=== PATIENT | male | born 1965 | race Two or more races ===

== ENCOUNTER 2020-08-21 12:58 | Inpatient (IN) | payer OTHER ==
--- OUTSIDE RECORDS SUMMARY | 2020-09-06 05:45 | XMS ---
:1965 Author Organization [facility] Care Team Providers Name Role Phone Caesar Whalen Unavailable Unavailable Re-disclosure Warning The records that you are about to access may contain information from federally- assisted alcohol or drug abuse programs. If such information is present, then the following federally mandated warning applies: This information has been disclosed to you from records protected by federal confidentiality rules (42 CFR part 2). The federal rules prohibit you from making any further disclosure of this information unless further disclosure is expressly permitted by the written consent of the person to whom it pertains or as otherwise permitted by 42 CFR part 2. A general authorization for the release of medical or other information is NOT sufficient for this purpose. The Federal rules restrict any use of the information to criminally investigate or prosecute any alcohol or drug abuse patient.The records that you are about to access may contain highly sensitive health information, the redisclosure of which is protected by Article 27-F of the [facility] Public Health law. If you continue you may haveaccess to information: Regarding HIV / AIDS; Provided by facilities licensed or operated by the [facility] Office of Mental Health; or Provided by the [facility] Office for People With Developmental Disabilities. If such information is present, then the following [facility] mandated warning applies: This information has been disclosed to you from confidential records which are protected by state law. State law prohibits you from making any further disclosure of this information without the specific written consent of the person to whom it pertains, or as otherwise permitted by law. Any unauthorized further disclosure in violation of state law may result in a fine or assisted sentence or both. A general authorization for the release of medical or other information is NOT sufficient authorization for further disclosure. Encounters Encounter Providers Location Date Indications Data Source(s ) Outpatient Attender: Caesar 05/09/2020 ALFRED CharlesReferrer: 10:30:00 (Ellis Whalen [facility]) [place] Open 04/14/2020 eCW2 (Op en Door [facility] Door Door 12:00:00 [facility]) [place] Open 02/04/2020 eCW2 (Op en Door Open Door Door 12:00:00 [facility]) [place] Open 01/14/2020 eCW2 (Op en Door Open Door Door 12:00:00 [facility]) [place] Open 12/31/2019 eCW2 (Op en Door Open Door Door 12:00:00 [facility]) Outpatient Attender: Caesar 09/28/2019 ALFRED WhalenReferrer: 09:30:00 (Garrettu calvin [facility]) [place] Open 09/07/2019 eCW2 (Op en Door Open Door Door 12:00:00 [facility]) [place] Open 07/12/2019 eCW2 (Op en Door Open Door Door 12:00:00 [facility]) Outpatient Attender: Caesar 08/06/2016 ALFRED WhalenReferrer: 03:45:00 (Garrettu calvin Whalen [facility]) Medications Medication Brand Start Product Dose Route Administrative Pharmacy [facility] Indications Reaction Description Data Name Date Form Instructions Instructions Source(s) Metformin METFOR RP NEXTGEN hydrochlori MIN (Carem[facility] nt de 500 MG HCL Medical - Oral Tablet [facility] 500 mg 500 Medical mg Group ) This may be an active medication. No end date is available. Start date above may not reflect actual date the medication was s tarted. 5 ML Levetiracetam 100 MG/ML KEPPRA RP NEXTGEN ([facility] Injection [Keppra] 500 mg/5 mL - [facility] 500 mg/5 mL ) This may be an active medication. No end date is available. Start date above may not reflect actual date the medication was s tarted. prednisolone PREDNISOLONE 09/23/2016 instill 1 RP NEXTGEN acetate 10 ACETATE 12:00:00 AM drop by ([facility] MG/ML EDT ophthalmic Medical - Mt Ophthalmic route 8 times [place] Suspension 1 % every day Medical 1 % into right Group PC) eye This may be an active medication. No end date is available. Prednisone 20 MG PREDNISONE 09/23/2016 take 1 RP NEXTGEN Oral Tablet 20 12:00:00 AM EDT tablet by ([facility] mg 20 mg oral route Medic al - Mt 2 times [place] Medica l every day Group PC) This may be an active medication. No end date is available. besifloxacin 6 BESIVANCE 08/14/2016 instill 1 drop RP NEXTGEN MG/ML Ophthalmic 12:00:00 AM by ophthalmic ([facility] Suspension EDT route 4 times Medical - Mt [Besivance] 0.6 every day into [place] [facility] % 0.6 % affected Group PC ) eye(s) at intervals of 4 to 12 hours This may be an active medication. No end date is available. Insurance Providers Payer name Policy type Policy ID Covered Covered republican's Policy P moy / Coverage republican ID relationship to Pope Inf ormation type pope BARTOLOME [id number] SP [id number] 400 HEALTH NON CAP BART[place]OME [id number] SP [id number] HEALTH NON CAP [facility] [id number] 1 [id number] 400 [facility] Problems, Conditions, and Diagnoses Code Display Name Description Problem Type Effective Data Dates Source(s) E11.9 Type 2 diabetes Type 2 diabetes Problem 02/04/2020 eCW2 (Open mellitus without mellitus without 12:00:00 AM D oor Family complication, complication, EDT Medical without long-term without long-term Center) current use of current use of insulin insulin R03.0 Elevated blood Elevated blood Problem 01/03/2020 eCW2 ( Open pressure reading pressure reading 12:00:00 AM D oor Family without diagnosis without diagnosis EST Medical of hypertension of hypertension Cent er) G40.509 Nonintractable Nonintractable Problem 12/31/2019 eCW2 ( 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 12:00:00 AM Doo r Family external causes, external causes, EST Me dical without status without status Center ) epilepticus epilepticus 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 05/09/2020 NEXT GEN scar and opacity 10:30:00 AM (Caremo unt EDT [facility]) H44.001 Unspecified Endophthalmitis Diagnosis 05/09/2020 NEXTGEN purulent purulent, right 10:30:00 AM (Caremou nt endophthalmitis, EDT [facility] right eye [facility]) Surgeries/Procedures Procedure Description Date Indications Data Source(s) OFFICE/OUTPATIENT OFFICE/OUTPATIENT 05/09/2020 NEXTG EN ([facility] VISIT EST VISIT EST 12:00:00 AM [facility] C) Results ID Date Data Source [id number] 09/01/2020 12:59:00 PM EDT [facility] Name Value Range Interpretation Description Data Sup porting Code Source(s) Document(s ) SARS [facility] coronavirus 2 RNA This lab was ordered by XUAN dillard [facility] and reported by [facility]. ID Date Data Source [id number] 08/17/2020 09:45:00 AM EDT [facility] Name Value Range Interpretation Description Data Sup porting Code Source(s) Document(s ) SARS [facility] coronavirus 2 RNA This lab was ordered by XUNA dillard [facility] and reported by [facility]. Procedure
--- OUTSIDE RECORDS SUMMARY | 2020-09-06 16:44 | XMS ---
:1965 Author Organization [facility] Care Team Providers Name Role Phone Koby Unavailable Unavailable Re-disclosure Warning The records that [...] is protected by Article 27-F of the [facility] Public Health law. If you continue you may haveaccess to information: Regarding HIV / AIDS; Provided by facilities licensed or operated by the [facility] Office of Mental Health; or Provided by the [facility] Office for People With Developmental Disabilities. If such information is present, then the following [facility] mandated warning applies: This information has been [...] law may result in a fine or detention sentence or both. A general authorization for the release of medical or other information is NOT sufficient authorization for further disclosure. Encounters Encounter Providers Location Date Indications Data Source(s ) Outpatient Attender: Caesar 05/09/2020 ALFRED KobyReferrer: 10:30:00 (Caremou calvin Caesar [facility]) [place] Open 04/14/2020 eCW2 (Op en Door Open Door Door 12:00:00 [facility]) [place] Open 02/04/2020 eCW2 (Op en Door Open Door Door 12:00:00 [facility]) [place] Open 01/14/2020 eCW2 (Op en Door Open Door Door 12:00:00 [facility]) [place] Open 12/31/2019 eCW2 (Op en Door Open Door Door 12:00:00 [facility]) Outpatient Attender: Caesar 09/28/2019 ALFRED WhalenReferrer: 09:30:00 (Caremou calvin Caesar [facility]) [place] Open 09/07/2019 eCW2 (Op en Door Open Door Door 12:00:00 [facility]) [place] Open 07/12/2019 eCW2 (Op en Door Open Door Door 12:00:00 [facility]) Outpatient Attender: Caesar 08/06/2016 ALFRED WhalenReferrer: 03:45:00 (Caremou calvin Caesar Whalen [facility] Medical [facility]) Medications Medication Brand Start Product Dose Route Administrative Pharmacy [facility] Indications Reaction Description Data Name Date Form Instructions Instructions Source(s) [facility] ([facility] de 500 MG HCL [facility] ) This may be an active medication. No end date is available. Start date above may not reflect actual date the medication was s tarted. 5 ML Levetiracetam 100 MG/ML KEPPRA RP NEXTGEN ([facility] [Keppra] 500 mg/5 mL - [facility] 500 mg/5 mL PC) This may be an active medication. [...] name Policy type Policy ID Covered Covered democrat's Policy P moy / Coverage democrat ID relationship to Pope Inf ormation type pope COUNT INCLUDES THE [facility] [id number] SP [id number] 400 HEALTH NON CAP [place] [id number] SP [id number] HEALTH NON CAP [facility] [id number] 1 [id number] 400 [facility] Problems, Conditions, and Diagnoses Code Display Name [...] scar and opacity 10:30:00 AM (Caremo unt T [facility] PC) H44.001 Unspecified Endophthalmitis Diagnosis 05/09/2020 NEXTGEN purulent purulent, right 10:30:00 AM (Caremou nt endophthalmitis, [facility] right eye [facility] PC) Surgeries/Procedures Procedure Description Date Indications Data Source(s) OFFICE/OUTPATIENT OFFICE/OUTPATIENT 05/09/2020 NEXTG EN ([facility] VISIT EST VISIT EST 12:00:00 AM [facility]) Results ID Date Data Source [id number] 09/01/2020 12:59:00 PM EDT [facility] Name Value Range Interpretation Description Data Sup porting Code Source(s) Document(s ) SARS [facility] coronavirus 2 RNA This lab was ordered by XUAN dillard [facility] and reported by [facility]. ID Date Data Source [id number] 08/17/2020 09:45:00 AM EDT [facility] Name Value Range Interpretation Description Data Sup porting Code Source(s) Document(s ) SARS [facility] coronavirus 2 RNA This lab was ordered by XUAN CELSA dillard [facility] and reported by [facility]. Procedure
--- NOTE | 2020-09-06 17:04 | HP ---
Admitting History and Physical - Primary Care Physician PCP: Sandi Badillo - Admission History of Present Illness: 55 year sold man with PMH CAd AO Brain tumor no canceer s/p resection with seziure On keppra eposidoes of near syncopy Admitted for elective admssion with ?? seziure acitivity History Source: Patient Limitations to Obtaining History: No Limitations Home Medications - Allergies Allergies/Adverse Reactions: Allergies Allergy/AdvReac Type Severity Reaction Status Date / Time No Known Allergies Allergy Verified 02/21/14 16:58 - Home Medications Home Medications: Ambulatory Orders levETIRAcetam [Keppra -] 1,500 mg PO BID 02/21/14 metFORMIN HCL [Glucophage -] 500 mg PO DAILY 02/21/14 Family Medical History Family History: Unremarkable Review of Systems - Review of Systems Neurological: reports: No Symptoms Physical Examination Neurological: Yes: Alert, Oriented, Babinski negative, Loss of Sensation ...Motor Strength: WNL Problem List - Problems (1) Epilepsia Code(s): G40.909 - EPILEPSY, UNSP, NOT INTRACTABLE, WITHOUT STATUS EPILEPTICUS Assessment/Plan Seizure precautiosn fall precautions keppra the same Tight BSl comntrol VEEG with camera digital anaylsis desiree vyas
[2020-09-06] MEDS ORDERED: LORazepam 2 MG/ML SDV VIAL IVPUSH PRN (17:06)
[2020-09-06] MEDS ORDERED: FLU VACCINE (FLULAVAL) PF 60 MCG/0.5 ML SYRINGE 2020-2021 IM ONE (17:55)
[2020-09-06] MEDS ORDERED: PNEUMOC 13-VAL CONJ-DIP CRM/PF 0.5 ML DISP.SYRIN IM ONE (18:00)
[2020-09-06 18:28] VITALS: BMI 28.3
[2020-09-06] MEDS ORDERED: PNEUMOCOCCAL 23 VACCINE 0.5 ML VIAL IM ONE (19:15)
[2020-09-06 19:59] LABS: HEMATOCRIT 43.3 % (35.4-49); HEMOGLOBIN 14.6 GM/dL (11.7-16.9); MCHC 33.7 g/dl (32.0-35.9); MEAN CELL VOLUME 89.2 fl (80-96); MEAN PLT VOLUME 9.6 fl (7.5-11.1); PLATELET COUNT 200 K/MM3 (134-434); RBC 4.85 M/mm3 (4.00-5.60); RDW 14.9 % (11.9-15.9); WHITE BLOOD COUNT 5.4 K/mm3 (4.0-10.0)
[2020-09-06 20:32] LABS: ALBUMIN 3.5 g/dl (3.4-5.0); BILIRUBIN,DIRECT 0.1 mg/dL (0.0-0.2); BILIRUBIN,TOTAL 0.5 mg/dL (0.2-1); BLOOD UREA NITROGEN 10.3 mg/dL (7-18); CALCIUM 8.5 mg/dL (8.5-10.1); CREATININE 0.7 mg/dL (0.55-1.3); POTASSIUM 3.7 mmol/L (3.5-5.1); TOT PROT 7.2 g/dl (6.4-8.2)
[2020-09-06] MEDS: levETIRAcetam 500 MG TABLET (FP) PO SCH (21:13)
[2020-09-07] MEDS: levETIRAcetam 500 MG TABLET (FP) PO SCH ×2 (09:13→21:16)
[2020-09-07] MEDS ORDERED: PT OWN MED DRAWER 7, Y5N ONE (12:19)
--- NOTE | 2020-09-07 13:51 | EKG ---
Test Reason : Blood Pressure : / mmHG Vent. Rate : 070 BPM Atrial Rate : 070 BPM P-R Int : 170 ms QRS Dur : 116 ms QT Int : 384 ms P-R-T Axes : 040 007 007 degrees QTc Int : 414 ms NORMAL SINUS RHYTHM NONSPECIFIC INTRAVENTRICULAR CONDUCTION DEFECT NONSPECIFIC INTRAVENTRICULAR CONDUCTION DEFECT NO PREVIOUS ECGS AVAILABLE Confirmed by ARINA WELCH MD ([id number]) on 09/07/2020 1:51:24 PM Referred By: Sandi Badillo Confirmed By:ARINA WELCH MD
--- NOTE | 2020-09-07 16:24 | PN ---
Progress Note, Physician History of Present Illness: Doing very well No seizur e No headcahe No weight loss No weight gain - Current Medication List Current Medications: Active Medications Levetiracetam (Keppra -) 500 mg PO BID [facility] Last Admin: 09/07/20 09:13 Dose: 500 mg Documented by: Lorazepam (Ativan Injection -) 1 mg IVPUSH ONCE PRN PRN Reason: SEIZURE Ofloxacin (Ocuflox 0.3% Eye Drops -) 1 drop OD BID [facility] - Objective Vital Signs: Vital Signs Temperature 99.9 F H 09/07/20 13:57 Pulse Rate 82 09/07/20 13:57 Respiratory Rate 16 09/07/20 13:57 Blood Pressure 143/64 09/07/20 13:57 O2 Sat by Pulse Oximetry (%) 98 09/07/20 09:40 Constitutional: Yes: Well Nourished Eyes: Yes: WNL Neurological: Yes: Alert, Oriented, Babinski negative ...Motor Strength: WNL Labs: CBC, BMP 09/06/20 18:49 09/06/20 18:49 Problem List - Problems (1) Epilepsia Assessment/Plan: Natanael omalley ari Seziure precaution VEEG till 09/08 Code(s): G40.909 - EPILEPSY, UNSP, NOT INTRACTABLE, WITHOUT STATUS EPILEPTICUS
[2020-09-07] MEDS: OFLOXACIN 0.3% OPHTHALMIC SOLUTION 5 ML BOTTLE OD SCH (21:19)
[2020-09-08] MEDS: levETIRAcetam 500 MG TABLET (FP) PO SCH ×2 (09:03→21:57)
[2020-09-08] MEDS: OFLOXACIN 0.3% OPHTHALMIC SOLUTION 5 ML BOTTLE OD SCH ×2 (09:03→21:57)
--- NOTE | 2020-09-08 12:04 | PN ---
Progress Note, Physician History of Present Illness: On VEEG On Keppra Feels good Machine running well No event overnight - Current Medication List Current Medications: Active Medications Levetiracetam (Keppra -) 500 mg PO BID [facility] Last Admin: 09/08/20 09:03 Dose: 500 mg Documented by: Lorazepam (Ativan Injection -) 1 mg IVPUSH ONCE PRN PRN Reason: SEIZURE Ofloxacin (Ocuflox 0.3% Eye Drops -) 1 drop OD BID [facility] Last Admin: 09/08/20 09:03 Dose: 1 drop Documented by: - Objective Vital Signs: Vital Signs Temperature 98.3 F 09/08/20 09:34 Pulse Rate 66 09/08/20 09:34 Respiratory Rate 18 09/08/20 09:34 Blood Pressure 137/84 09/08/20 09:34 O2 Sat by Pulse Oximetry (%) 98 09/08/20 09:34 Constitutional: Yes: Well Nourished Eyes: Yes: WNL HENT: Yes: WNL Neurological: Yes: Alert, Oriented, Cran Nerves II-XII Intact ...Motor Strength: WNL Labs: CBC, BMP 09/06/20 18:49 09/06/20 18:49 Problem List - Problems (1) Epilepsia Assessment/Plan: VEEG 12 hours more DC planning Keppra the same Code(s): G40.909 - EPILEPSY, UNSP, NOT INTRACTABLE, WITHOUT STATUS EPILEPTICUS
[2020-09-09 08:57] VITALS: BP 118/74; PULSE 69; TEMP 98
[2020-09-09] MEDS: levETIRAcetam 500 MG TABLET (FP) PO SCH (09:01)
[2020-09-09] MEDS: OFLOXACIN 0.3% OPHTHALMIC SOLUTION 5 ML BOTTLE OD SCH (09:01)
== END 2020-09-09 11:58 | disposition home or self-care (01) | DRG 53 ==
LOC: UNDOADMIN 09-06 05:42 → J2C 09-06 05:42 → J4S 09-06 16:34
PROVIDERS: ADMIT Psychiatry & Neurology Neurology; ATTEND Psychiatry & Neurology Neurology
PROC: 4A10X4Z Monitoring of Central Nervous Electrical Activity, External Approach (ICD-10-PCS; principal; 2020-09-06)
DX: G40.909 Epilepsy, unspecified, not intractable, without status epilepticus (principal); I25.10 Atherosclerotic heart disease of native coronary artery without angina pectoris
CPT/HCPCS: 36415; 80048; 80076; 85027; 90732; 93005; 93010; 95705; C9803; G0009; Q2036; U0003